=== PATIENT | male | born 1980 | race Hispanic/Latino ===

== ENCOUNTER 2021-10-06 08:50 | Outpatient (CLI) | payer OTHER | END 2021-10-06 08:51 | disposition home or self-care (01) | LOC: SCSMRI 08:50 | PROVIDERS: ATTEND Orthopaedic Surgery | DX: M23.92 Unspecified internal derangement of left knee (principal); S83.242A Other tear of medial meniscus, current injury, left knee, initial encounter; M25.462 Effusion, left knee ==

== ENCOUNTER 2021-11-09 12:55 | Outpatient (CLI) | payer SELFPAY ==
[2021-11-09 14:33] LABS: #Basophils 0.1 10x3/uL (0.0-0.2); #Eosinphils 0.4 10x3/uL (0.0-0.5); #Monocytes 0.4 10x3/uL (0.0-1.1); #Neutrophils 4.8 10x3/uL (1.5-8.4); %Eosinophils 5.1 % (0.0-6.0); %Lymphocytes 32.6 % (18.0-47.0); %Monocytes 5.1 % (0.0-10.0); Hemoglobin 15.3 g/dL (13.5-17.5); Mean Corpuscular HGB CONC 33.9 g/dL (32.0-36.0); Mean Corpuscular Hemoglobin 30.4 pg (27.0-33.0); Mean Corpuscular Volume 89.5 fl (81.2-95.1); Mean Platelet Volume 9.9 fl (7.4-10.4); Platelet Count 255 10x3/uL (150-450); RBC Distribution Width 12.1 % (11.5-14.5); Red Blood Cell (RBC) Count 5.04 10x6/uL (4.32-5.72); White Blood Cell (WBC) Count 8.6 10x3/uL (3.5-10.5)
[2021-11-10 12:02] LABS: SARS-CoV-2 PCR by NAA Not Detected (NotDetected)
== END 2021-11-09 12:56 | disposition home or self-care (01) ==
LOC: LABBT 12:55
PROVIDERS: ATTEND Orthopaedic Surgery
DX: Z01.818 Encounter for other preprocedural examination (principal); Z20.822 Contact with and (suspected) exposure to COVID-19
CPT/HCPCS: 85025; 93005; 93010; U0003; U0005

== ENCOUNTER 2021-11-14 05:39 | Day surgery (SDC) | payer OTHER ==
[2021-11-10 13:14] VITALS: BMI 27.3
[2021-11-14] MEDS ORDERED: Bupivacaine 0.25% HCL 30 ML VIAL ONE (06:23)
[2021-11-14] MEDS ORDERED: Lidocaine 1% (PF) 30 ML VIAL ONE (06:23)
[2021-11-14] MEDS ORDERED: EPINEPHrine 1 MG/ML AMP ONE (06:23)
[2021-11-14] MEDS ORDERED: Lidocaine 2% Jelly 5 ML TUBE ONE (06:24)
[2021-11-14] MEDS ORDERED: Fentanyl 100 MCG/2 ML VIAL ONE ×2 (06:24→08:40)
[2021-11-14] MEDS ORDERED: PROPOFOL 20 ML ONE (06:39)
[2021-11-14] MEDS ORDERED: ceFAZolin 2 GM/Dextrose 50 ML IVPB ONE (06:59)
[2021-11-14] MEDS ORDERED: PROPOFOL 200 MG/20 ML VIAL ONE (07:19)
[2021-11-14] MEDS ORDERED: Lidocaine 1% PF 5 ML VIAL ONE (07:19)
[2021-11-14] MEDS ORDERED: Lidocaine 2% w/Epinephrine 1:200K 20 ML VIAL ONE (07:19)
[2021-11-14] MEDS ORDERED: Dexamethasone 20 MG/5 ML VIAL ONE (07:19)
[2021-11-14] MEDS ORDERED: Ondansetron PF 4 MG/2 ML Vial ONE (07:19)
[2021-11-14] MEDS ORDERED: Ketorolac Tromethamine 30 MG/ML VIAL ONE (07:19)
[2021-11-14] MEDS ORDERED: Bupivacaine PF 0.5% 30 ML VIAL ONE (07:19)
[2021-11-14] MEDS ORDERED: HYDROcodone/Acetaminophen 5/325 mg Tablet ONE (10:08)
== END 2021-11-14 11:56 | disposition home or self-care (01) ==
LOC: SDC 05:39
PROVIDERS: ATTEND Orthopaedic Surgery
PROC: 0SQC4ZZ Repair Right Knee Joint, Percutaneous Endoscopic Approach (ICD-10-PCS; principal; 2021-11-14)
PROC: 0SBC4ZZ Excision of Right Knee Joint, Percutaneous Endoscopic Approach (ICD-10-PCS; principal; 2021-11-14)
DX: S83.231A Complex tear of medial meniscus, current injury, right knee, initial encounter (principal); M23.300 Other meniscus derangements, unspecified lateral meniscus, right knee; M23.8X1 Other internal derangements of right knee; M65.88 Other synovitis and tenosynovitis, other site; X58.XXXA Exposure to other specified factors, initial encounter; Y93.66 Activity, soccer
CPT/HCPCS: J0171; J0690; J2001; J2704; J3010; S0020

== ENCOUNTER 2023-04-25 07:13 | Day surgery (SDC) | payer SELFPAY ==
[2023-04-22 17:41] VITALS: BMI 30.4
[2023-04-25] MEDS ORDERED: Bupivacaine PF 0.5% 30 ML VIAL ONE (07:59)
[2023-04-25] MEDS ORDERED: fentaNYL 50 mcg/mL 1 mL Vial ONE ×4 (07:59→11:21)
[2023-04-25] MEDS ORDERED: Midazolam HCl 2 mg/2 ml Vial ONE (07:59)
[2023-04-25] MEDS ORDERED: fentaNYL PF 100 MCG/2 ML SYRINGE ONE (09:24)
[2023-04-25] MEDS ORDERED: Sodium Chloride 0.9% 100 ML ONE (09:34)
[2023-04-25] MEDS ORDERED: CEFAZOLIN 2 GM VIAL ONE (09:34)
[2023-04-25] MEDS ORDERED: Lidocaine 1% PF 5 ML VIAL ONE (09:49)
[2023-04-25] MEDS ORDERED: Ondansetron PF 4 MG/2 ML Vial ONE (09:49)
[2023-04-25] MEDS ORDERED: Dexamethasone 20 MG/5 ML VIAL ONE (09:49)
[2023-04-25] MEDS ORDERED: PROPOFOL 200 MG/20 ML VIAL ONE (09:49)
[2023-04-25] MEDS ORDERED: Ketorolac Tromethamine 30 MG/ML VIAL ONE (09:49)
[2023-04-25] MEDS ORDERED: Bupivacaine HCl 0.5%/Epinephrine 1:200,000/PF 30 ml Vial ONE (10:11)
[2023-04-25] MEDS ORDERED: Lidocaine 1% (PF) 30 ML VIAL ONE (10:11)
[2023-04-25] MEDS ORDERED: HYDROcodone/Acetaminophen 5/325 mg Tablet ONE (12:31)
== END 2023-04-25 13:59 | disposition home or self-care (01) ==
LOC: SDC 07:13
PROVIDERS: ATTEND Orthopaedic Surgery
PROC: 0SBC4ZZ Excision of Right Knee Joint, Percutaneous Endoscopic Approach (ICD-10-PCS; principal; 2023-04-25)
DX: S83.231A Complex tear of medial meniscus, current injury, right knee, initial encounter (principal); S83.411A Sprain of medial collateral ligament of right knee, initial encounter; M67.461 Ganglion, right knee; X58.XXXA Exposure to other specified factors, initial encounter
CPT/HCPCS: J1100; J1885; J2001; J2250; J2405; J2704; J3010; J3490; S0020